=== PATIENT | female | born 1970 | race Caucasian/White ===

== ENCOUNTER 2021-06-15 13:47 | Emergency (ER) | payer MEDICAID, OTHER ==
[~2021-06-15] VITALS: Ht 167.6 cm; Wt 74.4 kg
[~2021-06-15 13:47] MED LIST: ACET1TAB93 PO; CLIN300C2 PO
[2021-06-15 13:58] VITALS: BP 131/79
--- NOTE | 2021-06-15 14:02 | NUR ---
TENT 2.
--- NOTE | 2021-06-15 14:05 | NUR ---
BIB SELF C/O 6/10 SORE THROAT X 2 DAYS. COVID TESTED NEGATIVE 1 WEEK AGO.
[2021-06-15] MEDS: AMOXIL/CLAVULANATE 875/125 MG 1 TAB PO ONE (15:03)
[2021-06-15] MEDS ORDERED: BENZ1LOZ98 PO (15:28)
[2021-06-15] MEDS ORDERED: IBUP-2213 PO (15:28)
[2021-06-15] MEDS ORDERED: AMOX-1230 PO (15:28)
[2021-06-15] MEDS: DEXAMETHASONE 10 MG/ML VIAL IM ONE (15:42)
[2021-06-15] MEDS: KETOROLAC 30 MG/ML VIAL IM ONE (15:44)
[2021-06-15 16:00] VITALS: BP 136/87
--- NOTE | 2021-06-15 16:00 | NUR ---
Patient discharged with v/s stable. Written and verbal after care instructions given and explained. Patient alert, oriented and verbalized understanding of instructions. Ambulatory with steady gait. All questions addressed prior to discharge. ID band removed. Patient advised to follow up with PMD. Rx of IBUPROFEN, AUGMENTIN & CEPACOL SORE THROAT LOZENGE given. Patient educated on indication of medication including possible reaction and side effects. Opportunity to ask questions provided and answered.
== END 2021-06-15 16:00 | disposition home or self-care (01) ==
LOC: MED 13:47
DX: J02.9 Acute pharyngitis, unspecified (principal); I10 Essential (primary) hypertension; F17.210 Nicotine dependence, cigarettes, uncomplicated; Z79.899 Other long term (current) drug therapy; Z79.1 Long term (current) use of non-steroidal anti-inflammatories (NSAID); Z79.2 Long term (current) use of antibiotics
CPT/HCPCS: 96372; 99284; J1100; J1885

== ENCOUNTER 2022-08-21 02:34 | Emergency (ER) | payer OTHER ==
[~2022-08-21] VITALS: Ht 167.6 cm; Wt 72.6 kg
[~2022-08-21 02:34] MED LIST changes: +AMOX-1230 PO; +BENZ-300 PO; +IBUP-2213 PO
[2022-08-21 02:50] VITALS: BP 134/91
--- NOTE | 2022-08-21 02:56 | NUR ---
TO BED 9 FROM TRIAGE
[2022-08-21] MEDS ORDERED: KETOROLAC 30 MG/ML VIAL IM ONE (03:10)
[2022-08-21] MEDS ORDERED: diazePAM 5 MG TAB PO ONE (03:10)
--- NOTE | 2022-08-21 03:16 | NUR ---
X-RAY AT BEDSIDE.
--- NOTE | 2022-08-21 03:18 | NUR ---
Patient resting in bed, A/Ox4, chest and fall symmetrical, no s/s of distress, patient on monitor.
--- NOTE | 2022-08-21 03:52 | NUR ---
PATIENT STATED SHE "IS REFUSING TO GIVE URINE SAMPLE." ER PHYSICIAN, DR COTTER, VERBALLY INFORMED PATIENT IS REFUSING TO GIVE SAMPLE. ER PHYSICIAN, DR COTTER, VERBALIZED UNDERSTANDING.
[2022-08-21] MEDS ORDERED: NAPR-54 PO (04:00)
[2022-08-21] MEDS ORDERED: CYCL-711 PO (04:00)
[2022-08-21 04:03] VITALS: BP 128/84
[2022-08-21] MEDS ORDERED: BACI-416 TP (04:14)
== END 2022-08-21 04:03 | disposition home or self-care (01) ==
LOC: MED 02:34
DX: M54.50 Low back pain, unspecified (principal); M62.830 Muscle spasm of back
CPT/HCPCS: 71045; 72100; 96372; 99284; J1885; Q0092

== ENCOUNTER 2023-06-01 12:12 | Emergency (ER) | payer BC, MEDICAID, OTHER ==
[~2023-06-01] VITALS: Ht 167.6 cm; Wt 76.2 kg
[~2023-06-01 12:12] MED LIST changes: +BACI-418 TP; +CYCL-711 PO; +NAPR-54 PO
[2023-06-01 13:00] VITALS: BP 134/95; PULSE 96; RESP 18; TEMP 98.3; O2SAT 99
[2023-06-01] MEDS ORDERED: HYD1C TP (13:30)
[2023-06-01] MEDS ORDERED: ATA25 PO (13:30)
[2023-06-01 13:34] VITALS: BP 133/88; PULSE 88; RESP 18; TEMP 98; O2SAT 99
== END 2023-06-01 13:34 | disposition home or self-care (01) ==
LOC: MED 12:12
DX: L20.9 Atopic dermatitis, unspecified (principal); Z79.899 Other long term (current) drug therapy; Z79.1 Long term (current) use of non-steroidal anti-inflammatories (NSAID); Z79.2 Long term (current) use of antibiotics
CPT/HCPCS: 99283

== ENCOUNTER 2023-06-21 18:54 | Emergency (ER) | payer BC ==
[~2023-06-21] VITALS: Ht 167.6 cm; Wt 72.6 kg
[~2023-06-21 18:54] MED LIST changes: +ATA25 PO; +HYD1C TP
[2023-06-21 19:14] VITALS: BP 152/87; PULSE 105; RESP 20; TEMP 98; O2SAT 98
[2023-06-21] MEDS ORDERED: IBUP-1842 PO (20:55)
[2023-06-21] MEDS ORDERED: IBUPROFEN 600 MG TAB PO ONE (20:55)
== END 2023-06-21 21:06 | disposition home or self-care (01) ==
LOC: MED 18:54
DX: S00.03XA Contusion of scalp, initial encounter (principal); Z79.899 Other long term (current) drug therapy; X58.XXXA Exposure to other specified factors, initial encounter; Y93.89 Activity, other specified; Y92.89 Other specified places as the place of occurrence of the external cause; Y99.8 Other external cause status
CPT/HCPCS: 99282

== ENCOUNTER 2024-03-27 00:05 | Emergency (ER) | payer BC, MEDICAID ==
[~2024-03-27] VITALS: Ht 167.6 cm; Wt 76.2 kg
[~2024-03-27 00:05] MED LIST changes: +IBUP-1842 PO; +NAPR-337 PO; -NAPR-54 PO
[2024-03-27 00:22] VITALS: BP 156/103; PULSE 100; RESP 18; TEMP 98.3; O2SAT 95
[2024-03-27] MEDS ORDERED: ACET-9525 PO (01:13)
[2024-03-27] MEDS ORDERED: IBUP-2213 PO (01:13)
[2024-03-27] MEDS ORDERED: AMOX1TAB8 PO (01:13)
[2024-03-27] MEDS: KETOROLAC 30 MG/ML VIAL IM ONE (01:19)
[2024-03-27 01:38] VITALS: BP 154/101; PULSE 98; RESP 20; TEMP 98.3; O2SAT 95
== END 2024-03-27 01:38 | disposition home or self-care (01) ==
LOC: MED 00:05
DX: S02.5XXA Fracture of tooth (traumatic), initial encounter for closed fracture (principal); K02.9 Dental caries, unspecified; Z79.899 Other long term (current) drug therapy; X58.XXXA Exposure to other specified factors, initial encounter; Y92.89 Other specified places as the place of occurrence of the external cause; Y93.89 Activity, other specified; Y99.8 Other external cause status
CPT/HCPCS: 96372; 99283; J1885